=== PATIENT | female | born 1940 | race Caucasian/White ===

== ENCOUNTER 2019-05-31 12:31 | Emergency (ER) | payer MEDICARE ==
[~2019-05-31] VITALS: Ht 165.1 cm; Wt 63.2 kg
[~2019-05-31 12:31] MED LIST: BACTRIM DS1 TAB PO; LIVALO PO; SILVADENE1 % EX; [UNRECOGNIZED DRUG - REMARK]
[2019-05-31] MEDS ORDERED: ZPAK PO (14:31)
[2019-05-31 15:24] VITALS: BP 147/81
== END 2019-05-31 15:24 | disposition home or self-care (01) ==
LOC: ED 12:31
DX: J40 Bronchitis, not specified as acute or chronic (principal); F17.210 Nicotine dependence, cigarettes, uncomplicated

== ENCOUNTER 2023-03-01 11:24 | Emergency (ER) | payer MEDICARE ==
[2023-03-01] VITALS (9 sets, daily range): BP systolic 108–141; BP diastolic 54–89
[~2023-03-01] VITALS: Ht 162.6 cm; Wt 68.0 kg
[~2023-03-01 11:24] MED LIST changes: +ZPAK PO
== END 2023-03-01 14:34 | disposition home or self-care (01) ==
LOC: ED 11:24
DX: N63.15 Unspecified lump in the right breast, overlapping quadrants (principal); F17.210 Nicotine dependence, cigarettes, uncomplicated